=== PATIENT | female | born 1965 | race Caucasian/White ===

== ENCOUNTER → 2017-03-16 | Outpatient (CLI) | payer OTHER | LOC: LAB.R 08:00 | PROVIDERS: ATTEND Internal Medicine | DX: R07.9 Chest pain, unspecified (principal) | CPT/HCPCS: 84484 ==

== ENCOUNTER 2017-03-30 14:09 | Outpatient (CLI) | payer OTHER ==
--- NOTE | 2017-03-30 22:09 | MRI Report ---
EXAM: LEFT KNEE MRI WITHOUT CONTRAST EXAM DATE: 03/30/2017 02:30 PM. CLINICAL HISTORY: Left lateral knee swelling and pain. Previous surgery. COMPARISON: Left knee MRI from 04/03/2015. TECHNIQUE: Multiplanar, multisequence T1-weighted and fluid-sensitive sequences of the knee without c ontrast. Other: None. FINDINGS: Bones and articular cartilage: Osteophytes at the femoral condyles, tibial plateau, and patella. Grad e 2 chondromalacia at the medial compartment. Grade 2-3 chondromalacia at the lateral femoral condyle . Tiny subcortical cysts at the patella. Grade 2-3 chondromalacia at the patella. Grade 3-4 chondroma lacia at the femoral trochlea. Medial Meniscus: Degenerative signal within the posterior horn. No tear. Lateral Meniscus: Grade 2 degenerative signal versus a horizontal tear at the anterior horn. Tiny rad ial tear at the posterior horn (coronal image 20 and sagittal image 6). Cruciate Ligaments: The anterior and posterior cruciate ligaments are intact. Collateral Ligaments: The medial collateral and lateral collateral ligamentous structures are intact. Tendons: The quadriceps, patellar, semimembranosus, and popliteus tendons are unremarkable. Musculature: No edema or fatty atrophy. Other: Very small joint effusion. Small ganglion or synovial cyst posterior to the posterior horn med ial meniscus which is unchanged. No Navarrete's cyst. Small ganglion adjacent to the anterior horn latera l meniscus which is unchanged. No loose bodies. Irregularity at the lateral patellar retinaculum whi ch may be from previous lateral patellar release procedure. Medial patellar retinaculum is unremarkab le. The subcutaneous tissues and fat pads are unremarkable. IMPRESSION: 1. Tricompartmental chondromalacia. 2. Degenerative signal within the posterior horn medial meniscus. No tear. 3. Grade 2 degenerative signal versus a horizontal tear at the anterior horn lateral meniscus. Tiny r adial tear at the posterior horn lateral meniscus. 4. Small ganglion or synovial cyst posterior to the posterior horn medial meniscus. Small ganglion cy st adjacent to the anterior horn lateral meniscus. 5. Possible previous lateral patellar release procedure. [facility] MUSCULOSKELETAL RADIOLOGY SECTION Referring Provider Line: [phone] SITE ID: [id number]
== END 2017-03-30 14:10 | disposition home or self-care (01) ==
LOC: DI 14:09
PROVIDERS: ATTEND Orthopaedic Surgery
DX: M94.262 Chondromalacia, left knee (principal); M23.352 Other meniscus derangements, posterior horn of lateral meniscus, left knee; M67.462 Ganglion, left knee; M25.862 Other specified joint disorders, left knee

== ENCOUNTER 2019-05-29 08:06 | Outpatient (CLI) | payer BC ==
--- NOTE | 2019-05-31 09:03 | Mammography Report ---
Reason: ANNUAL MAMMO SELF REF Procedure Date: 05/29/2019 Accession Number: [id number] / [id number] Procedure: TODD - Screening Mammo w/Shen CPT Code: Final Report FULL RESULT: EXAM: Screening Mammo w/Shen DATE: 05/29/2019 8:40 AM CLINICAL HISTORY: Routine screening. No reported personal or family history of breast cancer. TECHNIQUE: (B) - Bilateral CC and MLO views were obtained. COMPARISON: 08/28/2012, 08/31/2010. PARENCHYMAL PATTERN: (A) - The breasts demonstrate scattered fibroglandular densities bilaterally. FINDINGS: Bilateral breasts: There are no suspicious masses, calcifications, or areas of distortion. IMPRESSION: Negative examination. BI-RADS category 1. RECOMMENDATION: (ANNUAL) - Recommend routine annual screening mammography. BI-RADS CATEGORY: (1) - Negative. STANDARD QUALIFYING STATEMENTS: 1. This examination was not reviewed with the aid of Computer-Aided Detection (CAD). 2. A negative or benign imaging report should not preclude biopsy if clinically suspicious findings are present. 3. Dense breasts may obscure an underlying neoplasm. 4. This examination was reviewed with the aid of 3D breast imaging (tomosynthesis).
== END 2019-05-29 08:07 | disposition home or self-care (01) ==
LOC: DI 08:06
DX: Z12.31 Encounter for screening mammogram for malignant neoplasm of breast (principal)
CPT/HCPCS: 77063; 77067

== ENCOUNTER 2019-08-28 07:14 | Outpatient (CLI) | payer BC ==
--- NOTE | 2019-08-28 14:30 | Ultrasound Report ---
Reason: IUD SURVEILLANCE Procedure Date: 08/28/2019 Accession Number: [id number] / [id number] Procedure: US - Pelvic w/Transvaginal CPT Code: Final Report FULL RESULT: EXAM: PELVIC ULTRASOUND EXAM DATE: 08/28/2019 08:09 AM. CLINICAL HISTORY: IUD SURVEILLANCE. COMPARISON: None. TECHNIQUE: Realtime transabdominal pelvic scan performed to identify the uterus and adnexa and as an overview of other pelvic structures, followed by transvaginal scan to provide greater detail of the uterus and adnexa, with static image documentation. FINDINGS: Uterus: 7.4 x 2.9 x 3.4 cm, volume 38.2 cc. Anteverted position. Normal overall size and echotexture. Masses: None. Endometrium: 5 mm. IUD present in appropriate position within the endometrium. Cervix: Unremarkable. Right Ovary: 2.7 x 2.0 x 1.3 cm, volume 3.7 cc. Normal echotexture and blood flow. Left Ovary: 1.7 x 1.5 x 2.0 cm, volume 2.7 cc. Normal echotexture and blood flow. Free Fluid: None. Other: None. IMPRESSION: No acute sonographic abnormalities. IUD present in appropriate position within the endometrium. [facility]
== END 2019-08-28 07:15 | disposition home or self-care (01) ==
LOC: DI 07:14
PROVIDERS: ATTEND Nurse Practitioner
DX: Z30.431 Encounter for routine checking of intrauterine contraceptive device (principal)
CPT/HCPCS: 76830; 76856

== ENCOUNTER 2020-01-16 06:29 | Day surgery (SDC) | payer BC ==
[2020-01-16] MEDS ORDERED: MIDAZOLAM 2 MG/2 ML VIAL IVP ONE (06:30)
[2020-01-16] MEDS ORDERED: fentaNYL 250 MCG/5 ML VIAL IVP ONE (06:30)
[2020-01-16] MEDS ORDERED: LACTATED RINGERS 1,000 ML IV ONE (07:02)
[2020-01-16 10:22] VITALS: BP 136/64
== END 2020-01-16 06:30 | disposition home or self-care (01) ==
LOC: SDS 06:29
PROVIDERS: ATTEND Surgery
DX: Z12.11 Encounter for screening for malignant neoplasm of colon (principal); K64.8 Other hemorrhoids; K57.30 Diverticulosis of large intestine without perforation or abscess without bleeding; J45.909 Unspecified asthma, uncomplicated; I10 Essential (primary) hypertension
CPT/HCPCS: 45378; J3010; J7120

== ENCOUNTER 2020-09-02 09:11 | Outpatient (CLI) | payer BC ==
--- NOTE | 2020-09-03 06:25 | Mammography Report ---
BILATERAL DIGITAL SCREENING MAMMOGRAM 3D/2D: 09/02/2020 CLINICAL: Routine screening. Comparison is made to exams dated: 05/29/2019 mammogram and 08/28/2012 mammogram - [facility]. There are scattered fibroglandular elements in both breasts. No significant masses, calcifications, or other findings are seen in either breast. There has been no significant interval change. IMPRESSION: NEGATIVE There is no mammographic evidence of malignancy. A 1 year screening mammogram is recommended. This exam was interpreted at Station ID: [id number]. NOTE: For mammograms, a report in lay terms will be sent to the patient. Approximately 15% of breast malignancies will not be visualized mammographically. In the management of a palpable breast mass, a negative mammogram must not discourage biopsy of a clinically suspicious lesion. Electronically Signed By: Julio César Armas M.D. ar/penrad:09/02/2020 10:03:31 ACR BI-RADS Category 1: Negative 3341F PARENCHYMAL PATTERN: (A) - The breast(s) demonstrate(s) scattered fibroglandular densities. BI-RADS CATEGORY: (1) - 1 RECOMMENDATION: (ANNUAL) - Recommend routine annual screening mammography. [id number] 1 year screening LATERALITY: (B)
== END 2020-09-02 09:12 | disposition home or self-care (01) ==
LOC: DI.N 09:11
PROVIDERS: ATTEND Nurse Practitioner
DX: Z12.31 Encounter for screening mammogram for malignant neoplasm of breast (principal)

== ENCOUNTER 2021-01-07 08:00 | Outpatient (CLI) | payer BC | END 2021-01-07 23:59 | disposition home or self-care (01) | LOC: LAB.WCP 08:00 | PROVIDERS: ATTEND Dentist General Practice | DX: Z53.9 Procedure and treatment not carried out, unspecified reason (principal) | CPT/HCPCS: 36415 ==